=== PATIENT | female | born 1995 | race African-American/Black ===

== ENCOUNTER 2016-08-19 13:24 | Emergency (ER) | payer OTHER ==
--- NOTE | ~2016-08-19 | CR63 ---
[facility]. [facility] A Service of [facility] & [facility] RADIOLOGY TEXT RESULTS PATIENT: DAVIDA FLEMING LOCATION: SED : [birth year] UNIT #: [id number] AGE: [address]: Wilfred Mullen MD SEX: F ORDER DR: [id number] [place] [id number] E MR#: [id number] Acc #: [id number] NAME: DAVIDA FLEMING : 1995 SEX: F STUDY DATE/TIME: 08/19/2016 UNIT: SED ROOM: STUDY DESCRIPTION: CR Chest 2 View Attending Physician: Wilfred Mullen M.D. Referring Physician: Wilfred Mullen M.D. Ordering Physician: Wilfred Mullen M.D. Primary Care Physician: [facility] MEDICAL IMAGING REPORT This report is preliminary unless electronic signature is present. EXAM Chest 2 views 08/19/2016 1258 hours HISTORY 21-year-old woman with history of anterior chest pain beginning this morning at 10 o'clock hours. No injury reported. COMPARISON None. FINDINGS Upright PA and lateral views of the chest were performed. The cardiac, mediastinal and hilar contours are normal. The lungs are clear. Bilateral nipple shadows are seen on the PA view. No effusions. IMPRESSION Normal 2-view chest exam. Dictated by... eDbi Wood M.D. THIS IS AN ELECTRONICALLY VERIFIED REPORT Debi Wood M.D. at 08/22/2016 9:26 AM Marley TD: 08/19/2016 14:59 JOB #: [id number] MEDICAL IMAGING REPORT Page 1 of 1
--- NOTE | ~2016-08-19 | EKG ---
PATIENT: DAVIDA FLEMING UNIT #: [id number] Ventricular Rate: 55 BPM Atrial Rate: 55 BPM P-R Interval: 154 ms QRS Duration: 82 ms Q-T Interval: 402 ms QTC Calculation(Bezet): 384 ms P Mittie: 29 degrees Calculated R Mittie: 52 degrees Calculated T Mittie: 40 degrees Diagnosis Line: Sinus bradycardia with sinus arrhythmia Diagnosis Line: Early repolarization Diagnosis Line: Otherwise normal ECG Diagnosis Line: When compared with ECG of 20-SEP-2014 18:31, Diagnosis Line: Nonspecific T wave abnormality no longer evident Diagnosis Line: in Anterolateral leads Diagnosis Line: Confirmed by HEMA SAMAYOA MD ([id number]) on 08/24/2016 Diagnosis Line: 9:23:52 AM INTERPRETING MD: YAO QUESADA
[~2016-08-19 13:24] MED LIST: AMOXICILLIN PO; CIPRO PO; PEPCID40 MG; ZITHROMAX PO
== END 2016-08-19 14:20 | disposition home or self-care (01) ==
LOC: SED 13:24
DX: M94.0 Chondrocostal junction syndrome [Tietze] (principal); F17.200 Nicotine dependence, unspecified, uncomplicated; Z88.2 Allergy status to sulfonamides; Z88.8 Allergy status to other drugs, medicaments and biological substances
CPT/HCPCS: 71020; 93005; 99284

== ENCOUNTER 2016-09-09 20:08 | Emergency (ER) | payer OTHER ==
--- NOTE | ~2016-09-09 | US134 ---
[facility] A Service of [facility] RADIOLOGY TEXT RESULTS PATIENT: DAVIDA FLEMING LOCATION: SED : [birth year] UNIT #: [id number] AGE: [address]: Fara Hidalgo MD SEX: F ORDER DR: [id number] [address] [address] [id number] E MR#: [id number] Acc #: [id number] NAME: DAVIDA FLEMING : 1995 SEX: F STUDY DATE/TIME: 09/09/2016 20:55 UNIT: SED ROOM: STUDY DESCRIPTION: Transvaginal Attending Physician: Fara Hidalgo M.D. Ordering Physician: Fara Hidalgo M.D. MEDICAL IMAGING REPORT This report is preliminary unless electronic signature is present. EXAM Pelvic ultrasound, transvaginal technique only. INDICATIONS 21-year-old female with low back pain for 12 hours. Positive test at home today. TECHNIQUE Sonographic imaging of the pelvis was performed. COMPARISON STUDIES No comparisons. FINDINGS The uterus is retroverted, dimensions 5 x 5.5 x 6.5 cm. Both ovaries appear unremarkable. The right measures 2.7 x 2.6 x 2.1 cm and the left 2.3 x 3.4 x 2.2 cm. Good flow in the ovaries bilaterally. Probable corpus luteum cyst on the left. There are 2 gestational sacs. Gestational sac A demonstrates a yolk sac and a pole. pole measures 8 mm for an estimated gestational age of 6 weeks and 5 days. heart tones in the range of 118 beats per minute. Gestational sac B demonstrates a yolk sac measuring about 2.7 mm and a pole measuring about 6.7 mm. This yields an estimated gestational age of about 6 weeks, 4 days. heart tones in the range of 117 beats per minute. Probable small amount of free fluid in the pelvis. IMPRESSION [facility] A Service of [facility] RADIOLOGY TEXT RESULTS PATIENT: DAVIDA FLEMING LOCATION: SED : 94 UNIT #: [id number] AGE: [address]: Fara Hidalgo MD SEX: F ORDER DR: 1. Retroverted uterus with imaging features most characteristic of a twin . This appears to represent a dichorionic . Gestational sac A demonstrates a yolk sac and a pole, estimated gestational age is about 6 weeks and 5 days. heart tones in the range of 118 beats per minute. Gestational sac B demonstrates a yolk sac and a crown-rump length of about 6.7 mm for estimated gestational age of 6 weeks and 4 days. heart tones in the range of 117 beats per minute. 2. Both ovaries appear within normal limits. Probable corpus luteum cyst on the left. 3. Trace free fluid in the pelvis within the normal range and likely physiologic. 4. UI [employer]EL[employer] referral, short-term follow-up ultrasound and beta-HCG levels recommended to document adequate progression of this and adequacy of growth. Adequacy of growth cannot be ascertained from this single ultrasound. STAT * RESULT Dictated by... Wilfred Perera M.D. THIS IS AN ELECTRONICALLY VERIFIED REPORT Wilfred Perera M.D. at 09/09/2016 10:33 PM KAROLYN/brielle TD: 09/09/2016 22:11 JOB #: [id number] MEDICAL IMAGING REPORT Page 1 of 1
[2016-09-09 20:31] LABS: URINE SOURCE CLEAN CATCH
[2016-09-09 20:33] LABS: URINE APPEARANCE CLEAR; URINE BILIRUBIN NEG (NEG); URINE BLOOD NEG (NEG); URINE COLOR YELLOW; URINE GLUCOSE NEG (NORM); URINE KETONE 1+ (NEG); URINE LEUKOCYTE ESTERASE 1+ (NEG); URINE NITRATE NEG (NEG); URINE PROTEIN NEG (NEG); URINE SPECIFIC GRAVITY 1.015 (1.003-1.035); URINE UROBILINOGEN 0.2 MG/DL (NORM)
[2016-09-09 20:37] LABS: MICRO INDICATED? YES
[2016-09-09 20:40] LABS: CULTURE INDICATED? YES; URINE BACTERIA NEG (NEG); URINE WBC 50-100 /[HPF] (0-5)
[2016-09-09 20:41] LABS: URINE MUCUS PRESENT; URINE SQUAMOUS EPITHELIAL CELL OCCAS /[HPF]
[2016-09-09 21:07] LABS: BASOPHIL% 0.3 % (0-2.5); EOSINOPHIL% 0.2 % (0.0-7.0); HEMATOCRIT 35.1 % (35.0-45.0); HEMOGLOBIN 12.4 gm/dL (12.0-16.0); LYMPHOCYTE# 1.1 X10e3 (1.0-3.5); MEAN CELL VOLUME 90.9 FL (83-96); MEAN CORPUSCULAR HGB CONC 35.2 g/dL (30-36); MEAN PLATELET VOLUME 7.3 FL (6.5-11.5); MONOCYTE# 1.1 X10e3 (0-1.0); MONOCYTE% 9.8 % (3.0-12.0); NEUTROPHIL# 8.7 X10e3 (1.5-7.1); NEUTROPHIL% 79.7 % (40-75); PLATELET COUNT 268 X10e3 (140-420); RED BLOOD COUNT 3.86 X10e (3.90-5.30); RED CELL DISTRIBUTION WIDTH 12.3 % (11.0-15.5); WHITE BLOOD COUNT 10.9 X10e3 (4.0-10.5)
[2016-09-09 21:08] LABS: DIFF IND NO
[2016-09-09 21:23] LABS: BUN/CREATININE RATIO 11.66; CALCIUM SERUM 9.4 mg/dL (8.4-10.2); CREATININE SERUM 0.6 mg/dL (0.6-1.4); POTASSIUM 3.5 mmol/L (3.5-5.1)
== END 2016-09-09 22:18 | disposition home or self-care (01) ==
LOC: SED 20:08
PROVIDERS: Nurse Practitioner Family; Student in an Organized Health Care Education/Training Program
DX: O20.0 Threatened abortion (principal); O99.89 Other specified diseases and conditions complicating pregnancy, childbirth and the puerperium; Z3A.01 Less than 8 weeks gestation of pregnancy; M54.5 Low back pain; Z88.2 Allergy status to sulfonamides; Z88.8 Allergy status to other drugs, medicaments and biological substances
CPT/HCPCS: 36415; 76830; 80048; 81003; 84702; 84703; 85025; 87086; 99284